=== PATIENT | female | born 1970 | race Caucasian/White ===

== ENCOUNTER 2019-08-25 11:08 | Day surgery (SDC) | payer OTHER ==
[2019-08-25 11:34] VITALS: BMI 29.2
[2019-08-25 12:17] VITALS: TEMP 98.2
[2019-08-25 12:48] VITALS: BP 117/81; PULSE 65
--- NOTE | 2019-08-26 15:42 | PATH ---
Surgical Pathology Report Patient Name: LUCIE BRAVO [facility]. Rec. #: [id number] /Age/Gender: 1970 (Age: 49) / F Account: [id number] Location: [facility]-ENDOSCOPY Taken: 08/25/2019 Received: 08/25/2019 Reported: 08/26/2019 Physicians: Yonny Calle D.O. Specimen(s) Received DISTAL TRANSVERSE POLYP BIOPSY Clinical History Constipation, colon screening Postoperative diagnosis: Colon polyp, diverticulosis, hemorrhoids Final Diagnosis DISTAL TRANSVERSE COLON POLYP, POLYPECTOMY: HYPERPLASTIC POLYP. Electronically Signed Anatoly Black M.D. Gross Description Received in formalin, labeled "distal transverse colon polyp biopsy" are 2 kim, irregular portions of soft tissue measuring 0.2 and 0.3 cm. in greatest dimension. The specimens are submitted in toto in one cassette. /08/25/2019 saudi/08/25/2019
== END 2019-08-25 13:25 | disposition home or self-care (01) ==
LOC: JASU-ENDO 11:08
PROVIDERS: ATTEND Internal Medicine Gastroenterology
PROC: 0DBL8ZX Excision of Transverse Colon, Via Natural or Artificial Opening Endoscopic, Diagnostic (ICD-10-PCS; principal; 2019-08-25 12:00)
DX: Z12.11 Encounter for screening for malignant neoplasm of colon (principal); K57.30 Diverticulosis of large intestine without perforation or abscess without bleeding; K64.8 Other hemorrhoids; D12.3 Benign neoplasm of transverse colon
CPT/HCPCS: 81025; 88305-TC

== ENCOUNTER 2020-11-21 13:28 | Emergency (ER) | payer OTHER ==
[2020-11-21 14:06] VITALS: BP 153/98; PULSE 66; TEMP 98.1; BMI 27.4
[2020-11-21] MEDS ORDERED: FAMOTIDINE 20 MG/50 ML IVPB 20 MG/50 ML MG IVPB ONE ×2 (14:52→15:24)
[2020-11-21] MEDS ORDERED: ONDANSETRON 4 MG/2 ML VIAL IVPUSH ONE (14:52)
[2020-11-21] MEDS ORDERED: SODIUM CHLORIDE 0.9% 1000 ML INFUS.BAG IV ONE (14:52)
[2020-11-21] MEDS ORDERED: ACETAMINOPHEN 1000 MG/100 ML VIAL (NON FORMULARY) IVPB ONE (14:52)
[2020-11-21] MEDS ORDERED: ONDANSETRON 4 MG/2 ML VIAL ONE (15:23)
[2020-11-21] MEDS ORDERED: ACETAMINOPHEN INJECTION 100 ML IVPB ONE (15:24)
[2020-11-21 16:16] LABS: EPI CELLS 21 /uL (0-25.1); HYALINE CASTS 4 /uL (0-3.1); PH,URINE 7.5 (5.0-8.0); URINE APPEARANCE CLEAR; URINE BACTERIA 414 /uL (0-1359); URINE BILIRUBIN NEGATIVE (NEGATIVE); URINE COLOR YELLOW; URINE GLUCOSE (UA) NEGATIVE (NEGATIVE); URINE KETONE 2+ (NEGATIVE); URINE LEUK ESTERASE 2+ (NEGATIVE); URINE NITRITE NEGATIVE (NEGATIVE); URINE PROTEIN NEGATIVE (NEGATIVE); URINE RBC 9 /uL (0-23.9); URINE WBC 213 /uL (0-25.8)
[2020-11-21 16:21] LABS: BASO % 0.4 % (0-2.0); EOS % 0.2 % (0-4.5); HEMATOCRIT 41.7 % (32.4-45.2); HEMOGLOBIN 13.6 GM/dL (10.7-15.3); LYMPH % 22.3 % (8-40); MCH 25.7 pg (25.7-33.7); MCHC 32.7 g/dl (32.0-36.0); MEAN CELL VOLUME 78.7 fl (80-96); MEAN PLT VOLUME 8.4 fl (7.5-11.1); MONO % 5.1 % (3.8-10.2); PLATELET COUNT 207 10^3/uL (134-434); RDW 15.9 % (11.6-15.6); WHITE BLOOD COUNT 8.5 K/mm3 (4.0-10.0)
[2020-11-21] MEDS ORDERED: NITROFURANTOIN MACROCRYSTAL 50 MG CAPSULE (FP) PO SCH (16:30)
[2020-11-21 16:43] LABS: ALBUMIN 3.6 g/dl (3.4-5.0); BLOOD UREA NITROGEN 7.3 mg/dL (7-18); CALCIUM 9.4 mg/dL (8.5-10.1)
[2020-11-21 16:47] LABS: CREATININE 0.7 mg/dL (0.55-1.3)
[2020-11-21 16:48] LABS: BILIRUBIN,TOTAL 0.3 mg/dL (0.2-1); TOT PROT 7.2 g/dl (6.4-8.2)
== END 2020-11-21 17:38 | disposition home or self-care (01) ==
LOC: JER 13:28
PROC: 3E033GC Introduction of Other Therapeutic Substance into Peripheral Vein, Percutaneous Approach (ICD-10-PCS; principal; 2020-11-21)
DX: R10.13 Epigastric pain (principal); R11.2 Nausea with vomiting, unspecified
CPT/HCPCS: 36415; 71045-TC-FY; 80053; 81003; 83690; 84703; 85025; 87086; 93005; 93010; 96365; 96375; 99285-25; J0131

== ENCOUNTER 2022-03-05 04:13 | Day surgery (SDC) | payer OTHER ==
[2022-02-28 08:49] VITALS: BMI 32.0
[2022-03-05 08:03] VITALS: RESP 20
[2022-03-05] MEDS ORDERED: ONDANSETRON 4 MG/2 ML VIAL ONE (10:15)
[2022-03-05] MEDS ORDERED: DEXAMETHASONE SOD PHOSPHATE 4 MG/1 ML VIAL ONE (10:15)
[2022-03-05] MEDS ORDERED: MIDAZOLAM HCL 2 MG/2 ML SINGLE DOSE VIAL ONE (10:15)
[2022-03-05] MEDS ORDERED: LIDOCAINE HCL/PF 2% SDV 5ML VIAL ONE (10:34)
[2022-03-05 11:27] VITALS: TEMP 97.8
[2022-03-05 12:58] VITALS: BP 148/81; PULSE 71
== END 2022-03-05 13:19 | disposition home or self-care (01) ==
LOC: JASU-SURG 04:13
PROVIDERS: ATTEND Urology
PROC: 0TF3XZZ Fragmentation in Right Kidney Pelvis, External Approach (ICD-10-PCS; principal; 2022-03-05 10:00)
DX: N20.0 Calculus of kidney (principal)
CPT/HCPCS: 81025

== ENCOUNTER 2023-05-15 22:41 | Observation (INO) | payer OTHER ==
[2023-05-16 00:02] LABS: BASO % 0.6 % (0-2.0); EOS % 2.2 % (0-4.5); HEMATOCRIT 40.4 % (32.4-45.2); HEMOGLOBIN 13.4 GM/dL (10.7-15.3); LYMPH % 36.1 % (8-40); MCHC 33.1 g/dl (32.0-36.0); MEAN CELL VOLUME 78.4 fl (80-96); MEAN PLT VOLUME 7.8 fl (7.5-11.1); MONO % 5.6 % (3.8-10.2); NEUT % 55.5 % (42.8-82.8); PLATELET COUNT 251 10^3/uL (134-434); RBC 5.15 M/mm3 (3.60-5.2); RDW 16.1 % (11.6-15.6); WHITE BLOOD COUNT 8.9 K/mm3 (4.0-10.0)
[2023-05-16 00:08] LABS: INR 0.96 (0.83-1.09); PROTHROMBIN TIME (PATIENT) 11.1 SEC (9.7-13.0)
[2023-05-16 00:11] LABS: ACTIVATED PTT 30.7 SECONDS (25.2-36.5)
[2023-05-16 00:22] LABS: POTASSIUM 4.4 mmol/L (3.5-5.1)
[2023-05-16 00:25] LABS: ALBUMIN 3.5 g/dl (3.4-5.0); BLOOD UREA NITROGEN 17.4 mg/dL (7-18); CALCIUM 9.4 mg/dL (8.5-10.1)
[2023-05-16 00:27] LABS: MAGNESIUM 2.1 mg/dL (1.8-2.4)
[2023-05-16 00:28] LABS: CREATININE 0.9 mg/dL (0.55-1.3); PHOSPHOROUS 3.7 mg/dL (2.5-4.9)
[2023-05-16 00:29] LABS: BILIRUBIN,TOTAL 0.3 mg/dL (0.2-1); TOT PROT 7.7 g/dl (6.4-8.2)
[2023-05-16] MEDS ORDERED: amLODIPine BESYLATE 5 MG TABLET (FP) ONE (02:37)
[2023-05-16] MEDS: amLODIPine BESYLATE 5 MG TABLET (FP) PO ONE (02:41)
[2023-05-16] MEDS ORDERED: DOCUSATE SODIUM 100 MG CAPSULE (FP) PO PRN (05:18)
[2023-05-16] MEDS ORDERED: ACETAMINOPHEN 325 MG TABLET (FP) PO PRN (05:18)
[2023-05-16] MEDS ORDERED: ACETAMINOPHEN 1000 MG/100 ML BAG IVPB PRN (05:20)
[2023-05-16] MEDS ORDERED: ACETAMINOPHEN 325 MG TABLET (FP) ONE (06:41)
[2023-05-16] MEDS: ACETAMINOPHEN 325 MG TABLET (FP) PO PRN (06:44)
[2023-05-16 11:52] VITALS: BMI 31.8
[2023-05-16] MEDS ORDERED: VANCOMYCIN ORAL SOLUTION 125 MG/2.5 ML PO SCH (12:00)
[2023-05-17 07:02] LABS: BASO % 0.4 % (0-2.0); EOS % 2.7 % (0-4.5); HEMATOCRIT 41.8 % (32.4-45.2); HEMOGLOBIN 13.5 GM/dL (10.7-15.3); LYMPH % 38.5 % (8-40); MCH 25.7 pg (25.7-33.7); MCHC 32.3 g/dl (32.0-36.0); MEAN CELL VOLUME 79.5 fl (80-96); MEAN PLT VOLUME 8.2 fl (7.5-11.1); MONO % 5.8 % (3.8-10.2); NEUT % 52.6 % (42.8-82.8); PLATELET COUNT 235 10^3/uL (134-434); RBC 5.26 M/mm3 (3.60-5.2)
[2023-05-17 07:14] LABS: POTASSIUM 3.9 mmol/L (3.5-5.1)
[2023-05-17 07:15] LABS: CALCIUM 9.1 mg/dL (8.5-10.1)
[2023-05-17 07:19] LABS: CREATININE 0.8 mg/dL (0.55-1.3)
[2023-05-17] MEDS: amLODIPine BESYLATE 10 MG TABLET (FP) PO SCH (09:37)
[2023-05-17] MEDS: ASPIRIN COATED 81 MG TABLET.EC PO SCH (09:37)
[2023-05-17] MEDS ORDERED: amLODIPine BESYLATE 5 MG TABLET (FP) PO SCH (10:00)
[2023-05-17 15:26] VITALS: BP 150/87; PULSE 80; RESP 20; TEMP 98.2
== END 2023-05-17 19:08 | disposition home or self-care (01) ==
LOC: JER 22:41 → JERBED 05-16 02:24 → J4W 05-16 08:45
PROVIDERS: ADMIT Internal Medicine; ATTEND Family Medicine
DX: I16.0 Hypertensive urgency (principal); R00.0 Tachycardia, unspecified; R07.9 Chest pain, unspecified; E78.00 Pure hypercholesterolemia, unspecified; G43.909 Migraine, unspecified, not intractable, without status migrainosus
CPT/HCPCS: 0241U-QW; 36415; 70450-TC; 70551-TC; 71046-TC-FY; 80048; 80053; 83735; 84100; 84484; 85025; 85610; 85651; 85730; 93005; 93010; 93880-TC; 99285-25; G0378